=== PATIENT | male | born 1955 | race Caucasian/White ===

== ENCOUNTER 2018-09-03 12:17 | Emergency (ER) | payer OTHER ==
[2018-09-03 12:43] VITALS: BP 152/88
--- NOTE | 2018-09-03 14:50 | UC ---
Back Pain HPI - HPI Summary HPI Summary: Patient is a 63-year-old male presenting to the ED with left rib pain 6 days. He states on Wednesday afternoon he was trying to swat his cat with a pillow and pulled his left side body and now complaining of rib pain. He states the day after this it happened, he states he felt okay, with approximately 2/10 pain, well controlled with ibuprofen. However the next day on Wednesday he began to feel worsening pain and his pain continues today and 8/10. Pain is not improved with [id number] medications. Not worse or better with rest, however slightly worse with movement to the left side. He denies any ecchymosis to the area. He is endorsing some shortness of breath stating he feels like he does "not want to take deep breath." - History of Current Complaint Chief Complaint: UCGeneralIllness Stated Complaint: RIB INJURY Time Seen by Provider: 09/03/18 13:26 Hx Obtained From: Patient Onset/Duration: Sudden Onset Timing: Constant Severity Initially: Moderate Severity Currently: Moderate Pain Intensity: 9 Pain Scale Used: 0-10 Numeric Back Pain: Is Discrete @ - left rib pain Aggravating Factor(s): Movement, Lifting, Bending Alleviating Factor(s): Nothing Associated Signs And Symptoms: Negative: Bruising - Risk Factors AAA Risk Factors: Negative TAD Risk Factors: Negative Cauda Equina Risk Factors: Negative - Allergies/Home Medications Allergies/Adverse Reactions: Allergies Allergy/AdvReac Type Severity Reaction Status Date / Time cephalexin [From Keflex] Allergy Rash Verified 09/03/18 12:44 ciprofloxacin [From Cipro] Allergy Rash Verified 09/03/18 12:44 PMH/Surg Hx/FS Hx/Imm Hx Previously Healthy: Yes - Surgical History Surgical History: Yes Surgery Procedure, Year, and Place: sinus; pilonoidal cyst; - Family History Known Family History: Positive: Diabetes - Social History Occupation: Employed Full-time Lives: With Family Alcohol Use: Weekly Substance Use Type: None Smoking Status (MU): Current Every Day Smoker Review of Systems All Other Systems Reviewed And Are Negative: Yes Constitutional: Positive: Negative Skin: Positive: Negative Respiratory: Positive: Negative Cardiovascular: Positive: Negative Motor: Positive: Negative Neurovascular: Positive: Negative Musculoskeletal: Positive: Arthralgia - pain to the left rib Neurological: Positive: Negative Is Patient Immunocompromised?: Yes Physical Exam Triage Information Reviewed: Yes Appearance: Well-Appearing, Well-Nourished Vital Signs: Initial Vital Signs Temp 97.8 F 09/03/18 12:40 Pulse 80 09/03/18 12:40 Resp 17 09/03/18 12:40 BP 152/88 09/03/18 12:40 Pulse Ox 98 09/03/18 12:40 Eye Exam: Normal Neck exam: Normal Neck: Positive: Supple Respiratory Exam: Normal Respiratory: Positive: Chest non-tender, Lungs clear, Normal breath sounds Cardiovascular Exam: Normal Cardiovascular: Positive: RRR Musculoskeletal: Positive: Other: - left rib pain on palpation Psychological Exam: Normal Psychological: Positive: Normal Response To Family, Age Appropriate Behavior Skin Exam: Normal Back Pain Course/Dx - Course Course Of Treatment: During the course of evaluation and treatment, the patient is evaluated for left rib pain. An x-ray of the left rib series including chest x-ray is obtained which shows no acute cardiopulmonary findings or rib contusion or pneumothorax. Lungs are clear to auscultation bilaterally. Patient will be diagnosed with rib pain and tramadol is given for pain control. He is also encouraged to take ibuprofen and use heat to the area. He understands return precautions and to go to the ED if he develops any worsening or changing symptoms. - Differential Dx/Diagnosis Differential Diagnosis/HQI/PQRI: Strain, Sprain Provider Diagnosis: Rib pain on left side Discharge - Sign-Out/Discharge Documenting (check all that apply): Patient Departure All imaging exams completed and their final reports reviewed: Yes - Discharge Plan Condition: Stable Disposition: HOME Prescriptions: traMADol TAB* [Ultram*] 50 mg PO Q8H PRN #15 tab MDD 3 PRN Reason: Pain Referrals: Luis Fernando Galarza MD [Primary Care Provider] - Additional Instructions: Ibuprofen 600 mg 3 times daily Tramadol 50 mg 3 times daily Use these intermittently to allow for a more even pain control Moist heat to the area Deep breaths to prevent pneumonia As discussed, go to the ED if he develop any worsening or changing symptoms - Billing Disposition and Condition Condition: STABLE Disposition: Home
== END 2018-09-03 15:00 | disposition home or self-care (01) ==
LOC: UCEAST 12:17
DX: R07.81 Pleurodynia (principal); X50.0XXA Overexertion from strenuous movement or load, initial encounter; Y93.89 Activity, other specified; Y92.009 Unspecified place in unspecified non-institutional (private) residence as the place of occurrence of the external cause; Z88.1 Allergy status to other antibiotic agents; F17.210 Nicotine dependence, cigarettes, uncomplicated
CPT/HCPCS: 99212; G0463